=== PATIENT | female | born 1965 ===

== ENCOUNTER 2017-01-14 00:15 | Emergency (ER) | payer MEDICAID ==
[2017-01-14 02:24] LABS: ABSOLUTE NEUTROPHIL COUNT 4.5 K/mm3 (1.8-7.7); BASO % 0.5 % (0.2-1.0); EOS % 0.1 % (0.9-2.9); HEMATOCRIT 29.6 % (37.0-47.0); HEMOGLOBIN 9.5 gm/l (12.0-16.0); IMM NEUT% 0.2 % (0-1); LYMPH # 2.5 (1.0-4.8); LYMPH % 30.7 % (15-45); MEAN CELL VOLUME 90.5 fl (81.0-99.0); MEAN CORPUSCULAR HEMOGLOBIN 29.1 pg (27.0-31.0); MEAN CORPUSCULAR HGB CONC 32.1 g/dl (33.0-37.0); MEAN PLATELET VOLUME 8.5 fl (7.4-10.4); MONO % 12.4 % (4-12); NEUT % 56.1 % (43-75); PLATELET COUNT 254 K/mm3 (130-400); RED CELL DISTRIBUTION WIDTH 12.8 % (11.5-14.5)
[2017-01-14 02:34] LABS: URINE APPEARANCE CLEAR; URINE BILIRUBIN NEGATIVE (NEGATIVE); URINE BLOOD 4+ (NEGATIVE); URINE COLOR YELLOW; URINE GLUCOSE (UA) NEGATIVE (NEGATIVE); URINE LEUKOCYTE ESTERASE NEGATIVE (NEGATIVE); URINE NITRITE NEGATIVE (NEGATIVE); URINE PROTEIN 1+ (NEGATIVE); URINE UROBILINOGEN NORMAL (0-1 mg/dl)
[2017-01-14 02:40] LABS: URINE BACTERIA 0
[2017-01-14 02:41] LABS: URINE CASTS 0-1 GRANULAR /lpf
[2017-01-14 02:45] LABS: ALB/GLOB RATIO 0.8 (>1.0); ALBUMIN 3.5 gm/dL (3.5-5.7); CALCIUM 8.9 mg/dL (8.6-10.3)
[2017-01-14] MEDS ORDERED: CIPROFLOXACIN 500 MG TABLET ONE (02:59)
== END 2017-01-14 03:14 | disposition home or self-care (01) ==
LOC: ED 00:15
DX: N39.0 Urinary tract infection, site not specified (principal)

== ENCOUNTER 2017-01-14 19:46 | Emergency (ER) | payer MEDICAID ==
[2017-01-14 20:36] LABS: VENOUS BLOOD GAS BASE EXCESS -4.5 mmol/L (-2.0-2.0); VENOUS BLOOD GAS HCO3 16.9 mmol/L (22.0-27.0)
[2017-01-14 21:03] LABS: ABSOLUTE NEUTROPHIL COUNT 10.4 K/mm3 (1.8-7.7); BASO % 0.2 % (0.2-1.0); EOS % 0.1 % (0.9-2.9); HEMATOCRIT 26.3 % (37.0-47.0); HEMOGLOBIN 8.5 gm/l (12.0-16.0); IMM NEUT # 0.1 K/mm3 (0-0.2); IMM NEUT% 0.4 % (0-1); LYMPH # 2.5 (1.0-4.8); LYMPH % 18.6 % (15-45); MEAN CELL VOLUME 91.6 fl (81.0-99.0); MEAN CORPUSCULAR HEMOGLOBIN 29.6 pg (27.0-31.0); MEAN CORPUSCULAR HGB CONC 32.3 g/dl (33.0-37.0); MEAN PLATELET VOLUME 9.1 fl (7.4-10.4); MONO # 0.6 (0.0-0.8); MONO % 4.3 % (4-12); NEUT % 76.4 % (43-75); PLATELET COUNT 268 K/mm3 (130-400)
[2017-01-14 21:07] LABS: URINE BILIRUBIN NEGATIVE (NEGATIVE); URINE BLOOD 3+ (NEGATIVE); URINE GLUCOSE (UA) NEGATIVE (NEGATIVE); URINE LEUKOCYTE ESTERASE NEGATIVE (NEGATIVE); URINE NITRITE NEGATIVE (NEGATIVE); URINE PROTEIN 2+ (NEGATIVE); URINE UROBILINOGEN NORMAL (0-1 mg/dl)
[2017-01-14 21:11] LABS: URINE APPEARANCE CLOUDY; URINE COLOR YELLOW
[2017-01-14 21:14] LABS: ALB/GLOB RATIO 0.9 (>1.0); ALBUMIN 3.4 gm/dL (3.5-5.7); CALCIUM 8.7 mg/dL (8.6-10.3)
[2017-01-14 21:16] LABS: URINE AMORPHOUS SEDIMENT 2+ URATES; URINE BACTERIA 0; URINE CASTS 3-5 GRANULAR /lpf
[2017-01-14] MEDS: IOPAMIDOL 300 (61%) 100 ML VIAL IV ONE (21:34)
[2017-01-14 21:39] LABS: C-REACTIVE PROTEIN 24.9 mg/dl (<1.0)
[2017-01-14] MEDS: IOPAMIDOL 370 (76%) IV.SOLN 150 ML IV ONE (22:40)
--- NOTE | 2017-01-15 07:53 | RAD ---
CHEST - 2 VIEWS COMPARISON: Chest 2 views, 12/27/2016 HISTORY: Fever and vomiting. FINDINGS: Views: Frontal and lateral chest Lungs: Normal Heart and vessels: Normal heart size. Elongated aorta, unchanged. Trachea and bronchi: Normal Mediastinum and venecia: Normal Costophrenic sulci: Normal Chest wall and bones: Normal. Upper abdomen: Incidentally noted is contrast enhancement of the renal collecting systems because of a recent CT. IMPRESSION: Negative 2 view chest.
--- NOTE | 2017-01-15 08:12 | CT ---
ABD/PELVIS W/ CON COMPARISON: None. HISTORY: 51-year-old female presents with continuing chills and vomiting post discharge from similar to the emergency department last night. The abdomen was diffusely tender. Fever 103.6F, with tachycardia. Technique: No oral contrast. Intravenous injection 100 mL Isovue 370. Using a [employer] [address] scanner, images were obtained from the diaphragm to the floor the pelvis. An automated dose reduction technique was used to minimize patient radiation dose. Dose information: CTDIvol (mGy): 10.80 DLP(mGycm): 531.70 FINDINGS: Mass: Left upper quadrant mass, 21.8 cm transverse by 13.6 cm anterior posterior by 20.0 cm craniocaudal, with heterogeneous attenuation and enhancement, displaces the adjacent liver, stomach, duodenum, and colon. Lung bases: Normal. Inferior mediastinum and heart: Normal. Liver: Normal. Gallbladder:Normal. Bile ducts: Normal. Pancreas: Normal. Spleen: Normal. Adrenal glands: Normal. Kidneys: Normal. Ureters: Normal Urinary bladder: Normal. Uterus and adnexa: Normal. Blood vessels: Normal Lymph nodes: Normal Stomach: Normal Duodenum: Normal Small intestine: Normal Appendix: Normal Colon: Normal Abdominal wall and supporting musculature: Normal Bones: Normal IMPRESSION: 1. Left upper quadrant peritoneal mass, 21.8 cm transverse by 13.6 cm anterior posterior by 20.0 cm craniocaudal, with heterogeneous attenuation and enhancement, displaces the adjacent liver, stomach, duodenum, and colon. The differential diagnosis for solid peritoneal masses includes carcinoid, gastrointestinal stromal tumor, mesenteric fibromatosis (desmoid), and others. 2. In the liver, left lobe 4.7 mm and right lobe 4.7 mm hypodensities, too small to characterize. Preliminary report by [facility] radiologist Pablo Gomez M.D. 01/14/2017 at 22:04
--- NOTE | 2017-01-15 09:07 | CT ---
Exam: CT angiogram chest with contrast Comparison: CT abdomen 01/14/2017 History: Tachypnea, abdominal tumor, fever. Technique: CT angiogram of the chest was obtained following the administration of 80 mL Isovue-370 intravenous contrast using a CT angiogram pulmonary embolism protocol which was supplemented with MIP reformations constructed at the CT workstation. Findings: There is no evidence of acute pulmonary thromboembolic disease to the proximal subsegmental level. There are two noncalcified pulmonary nodules in the right upper lobe measuring 4 and 5 mm in the same vicinity on axial images 34 and 35. An additional 3 mm noncalcified nodule seen within the right lower lobe on image 36 and a vague 4 mm subpleural nodule within the right middle lobe on axial image 45. Lung volumes are low, with mild bibasilar atelectasis. There is no significant mediastinal or hilar lymphadenopathy by size criteria. There is no pleural or pericardial effusion. 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 Please see CT examination the abdomen and pelvis same day for further discussion of that finding. No worrisome lytic or blastic osseous lesion is identified. IMPRESSION: 1. 4 noncalcified pulmonary nodules in the right lung measuring up to 5 mm which are of uncertain chronicity given lack of similar comparisons; unfortunately these are visible on today's chest radiograph. This could reflect prior inflammation/infection but given the intra-abdominal tumor, metastatic disease cannot be excluded. 2. No evidence of acute pulmonary thromboembolic disease to the proximal subsegmental level. 3. Please see abdominal and pelvic CT for discussion of the abdominal tumor. Preliminary report transmitted to the emergency department from [place] at 2334 hours 01/14/2017.
== END 2017-01-15 00:15 | disposition short-term general hospital (02) ==
LOC: ED 19:46
DX: R19.00 Intra-abdominal and pelvic swelling, mass and lump, unspecified site (principal); R11.2 Nausea with vomiting, unspecified; R00.0 Tachycardia, unspecified
CPT/HCPCS: 83605; 83690; 84703; 82803; 86141; 85025; 87040 ×2; 80053; 81001; 71020; 74177; 71275; 87804; 99284; 96374; 96361 ×2; 36415; 51701; 99285; Q9967 ×2